=== PATIENT | male | born 1960 | race Caucasian/White ===

== ENCOUNTER 2016-08-06 12:31 | Emergency (ER) | payer OTHER ==
[2016-08-06 13:02] LABS: HEMOGLOBIN 16.9 gm/dl (14.0-17.5); RED BLOOD COUNT 5.91 M/UL (4.20-5.50); WHITE BLOOD COUNT 11.7 K/UL (4.5-11.0)
[2016-08-06 13:25] LABS: BUN/CREATININE RATIO 20 (0-10)
== END 2016-08-06 14:30 | disposition home or self-care (01) ==
LOC: ER1 12:31
PROVIDERS: Emergency Medicine
DX: R07.89 Other chest pain (principal); R06.00 Dyspnea, unspecified; F17.200 Nicotine dependence, unspecified, uncomplicated
CPT/HCPCS: 36415; 71010; 80053; 82550; 82553; 83874; 84484; 85025; 93005; 99285

== ENCOUNTER → 2016-08-10 | Outpatient (CLI) | payer OTHER | LOC: RAD 13:00 | DX: M54.9 Dorsalgia, unspecified (principal) | CPT/HCPCS: 72110 ==